=== PATIENT | female | born 2000 | race Hispanic/Latino ===

== ENCOUNTER 2022-12-15 05:38 | Emergency (ER) | payer OTHER, SELFPAY ==
[2022-12-15 05:41] VITALS: BP 124/71; PULSE 103; RESP 20; TEMP 37.3; O2SAT 100
[2022-12-15 06:00] LABS: Basophils Percent Auto 0.2 % (0.2-1.2); Eosinophils Percent Auto 0.2 % (0-4.4); Hematocrit 43.8 % (37.0-47.0); Hemoglobin 14.9 g/dL (12.0-15.0); Immature Granulocyte Absolute 0.09 K/mm3 (0.00-0.031); Immature Granulocyte Percent A 0.5 % (0-0.5); Lymphocytes Absolute Auto 0.28 K/mm3 (0.9-3.2); Lymphocytes Percent Auto 1.5 % (18.3-44.2); Mean Corpuscular Volume 88.1 fl (80-100); Mean Platelet Volume 9.7 fl (7.4-10.4); Monocytes Absolute Auto 0.8 K/mm3 (0.1-0.6); Neutrophils Absolute Auto 17.7 K/mm3 (1.3-6.7); Neutrophils Percent Auto 93.6 % (45.5-73.1); Platelet Count Result 232 k/mm3 (150-375); Red Blood Count 4.97 M/mm3 (4.2-5.4); Red Cell Distribution Width 13.4 % (11.5-14.5); White Blood Count 18.9 K/mm3 (4.5-10.0)
[2022-12-15 06:11] LABS: Alanine Aminotransferase 25 U/L (6-35); Albumin Level 5.1 g/dL (3.5-5.1); Alkaline Phosphatase 63 U/L (38-126); Anion Gap 8 mmol/L (8-16); Aspartate Amino Transferase 24 U/L (14-36); Bilirubin,Total 1.1 mg/dL (0.2-1.3); Blood Urea Nitrogen 10 mg/dL (7-17); Calcium 9.3 mg/dL (8.4-10.2); Carbon Dioxide 26 mmol/L (22-30); Chloride 102 mmol/L (98-107); Estimated CRCL calculation 102 ml/min; Estimated Glomerular Filt Rate > 60; Glucose 119 mg/dL (65-110); Lipase 46 U/L (23-300); Potassium 3.7 mmol/L (3.4-5.0); Sodium 136 mmol/L (137-145)
[2022-12-15] MEDS: SODIUM CHLORIDE 0.9% IV 2,000 ML 999 ML IV CONT (06:26)
[2022-12-15] MEDS: FAMOTIDINE 20 MG/2 ML VIAL IV PUSH (06:27)
[2022-12-15] MEDS: ONDANSETRON INJ 4 MG/2 ML VIAL IV PUSH (06:27)
--- NOTE | 2022-12-15 06:43 | ED.GENADULT ---
HPI - General Adult General Chief complaint: Nausea/Vomiting/Diarrhea <Tyson Mack MD - Last Filed: 12/18/22 08:26> Stated complaint: vomiting <Tyson Mack MD - Last Filed: 12/18/22 08:26> History of Present Illness HPI narrative: This is a 22-year-old female presenting ED with a chief complaint of nausea vomiting diarrhea x8 hours. At midnight patient again have multiple episodes of nonbloody nonbilious nausea and vomiting. Associated with nonbloody diarrhea. She also has diffuse generalized cramping pain in her belly that is 6 out 10 intensity and comes and goes. She says she has had this before when she has had GI upset. There are no exacerbating or alleviating symptoms. She denies fever, chills, URI symptoms, chest pain difficulty breathing urinary symptoms. She is not sexually active and has no concerns for STDs. <yTson Mack MD - Last Filed: 12/18/22 08:26> Related Data Allergies/adverse reactions: Allergies Allergy/AdvReac Type Severity Reaction Status Date / Time No Known Allergies Allergy Unverified 12/15/22 05:51 <Tyson Mack MD - Last Filed: 12/18/22 08:26> [facility] Past Medical History Medical History: Medical History (Updated 12/16/22 @ 00:00 by Mahad Malin) Mononucleosis <Tyson Mack MD - Last Filed: 12/18/22 08:26> Family History Family History: Family History Mother Family history of thyroid disease Grandparent Diabetes mellitus <Tyson Mack MD - Last Filed: 12/18/22 08:26> Social History Social History: Social History (Updated 11/18/21 @ 16:06 by Dorothy Escobedo) Social History: Student-Single Smoking status: Never smoker Second hand tobacco smoke exposure: No Alcohol intake: never Substance use: never Substance use type: does not use Living arrangements: with family Occupation/Education: student Additional occupation/education comments: Pt also works parts technician. Gender identity (if verbalized by the patient): Female Sexual Orientation (if Verbalized by the Patient): Straight or Heterosexual <Tyson Mack MD - Last Filed: 12/18/22 08:26> Exam Narrative: APPEARANCE: No apparent distress. patient is well-appearing Head: atraumatic. EYES: EOMI, NOSE: Atraumatic NECK: Trachea midline RESPIRATORY: No increased rate of breathing , CTAB CARDIOVASCULAR: RRR, ABDOMINAL: Abdomen is soft, nontender with no guarding or rebound. Bowel sounds are hyperactive. No CVA tenderness. MUSCULOSKELETAl: No obvious deformities NEURO: Alert. Moving 4/4 extremities SKIN:: Warm, dry. Normal color PSYCHIATRIC: Normal affect <Tyson Mack MD - Last Filed: 12/18/22 08:26> Course Course Emergency Course: 0700: Signed out to Dr. Barrera pending rehydration and reevaluation. <Tyson Mack MD - Last Filed: 12/18/22 08:26> CHECK CLERK/PA Physician Supervision I did reevaluate the patient, she is feeling much better, agreeable to going home and follow-up. Repeat abdominal exam does not reveal any tenderness, she was able to tolerate p.o., I have given her strict return precautions including if her symptoms persist for another day, or if it worsens or if she develops fevers or the pain localizes to her right lower quadrant or upper quadrant, or if she starts to vomitg again and cannot stop, she is to return immediately to the ER. Patient agreeable with this. <Anuja Barrera MD - Last Filed: 12/15/22 08:50> Vital Signs Vital signs: Vital Signs Temperature 99.2 F 12/15/22 05:41 Pulse Rate 103 H 12/15/22 05:41 Respiratory Rate 20 12/15/22 05:41 Blood Pressure 124/71 12/15/22 05:41 Pulse Oximetry 100 12/15/22 05:41 Oxygen Delivery Room Air 12/15/22 05:41 Temperature 99.2 F 12/15/22 05:41 Pulse Rate 100 12/15/22 09:10 Respiratory Rate 16 12/15/22 09:10 Blood Pressure 123/68 12/15/22 09:10 Pulse Oximetr
[2022-12-15 06:44] LABS: Appearance Urine Clear (Clear); Bacteria Urine Rare /hpf; Bilirubin Urine Negative (Negative); Blood Urine 1+ (Negative); Color Urine Yellow (Yellow); Glucose Urine UA Negative (Negative); Ketones Urine Trace mg/dL (Negative); Leukocyte Esterase Ur Trace LEU/UL (Negative); Nitrate Urine Negative (Negative); Non Pathogenic Casts 0-2; Protein Urine Negative (Negative); Specific Grav Ur 1.022 (1.001-1.035); Squamous Epithelial Cell Urine Moderate /hpf (Few); WBC Urine 0-5 /hpf
[2022-12-15 06:47] LABS: Add Urine Microscopic? YES
[2022-12-15] MEDS: ONDANSETRON HCL ODT 4 MG TABLET PO (08:38)
[2022-12-15] MEDS: MAG HYDROX/AL HYDROX/SIMETH 30 ML UDC PO (08:38)
[2022-12-15 09:10] VITALS: BP 123/68; PULSE 100; RESP 16; O2SAT 98
== END 2022-12-15 09:10 | disposition home or self-care (01) ==
PROVIDERS: Emergency Provider Emergency Medicine; PCP Family Medicine
DX: R11.2 Nausea with vomiting, unspecified (principal); R19.7 Diarrhea, unspecified
CPT/HCPCS: 36415; 80053; 81001; 81025; 83690; 85025; 96361; 96374; 96375; 99284; A9270; J2405; J7030

== ENCOUNTER 2022-12-19 14:48 | Emergency (ER) | payer OTHER, SELFPAY ==
[2022-12-19 14:59] VITALS: BP 124/76; PULSE 84; RESP 16; TEMP 37.3; O2SAT 100
--- NOTE | 2022-12-19 15:21 | ED.GENADULT ---
HPI - General Adult General Chief complaint: Unspecified Stated complaint: constipated, nausea Time Seen by Provider: 12/19/22 15:38 Source: patient and RN notes reviewed Mode of arrival: ambulatory Limitations: no limitations History of Present Illness HPI narrative: 22-year-old female presents with concern for constipation. She reports she was treated in the emergency room for nausea, vomiting, diarrhea 4 days ago. Reports her last bowel movement was on Tuesday and it was diarrhea. Reports she tried using fiber but has just been bloated and gassy. She reports normally she has a bowel movement every day or every other day, but she has had does tend to be constipated. Reports she has hemorrhoids from past constipation. She denies abdominal pain MD complaint: Constipation Related Data Allergies Allergy/AdvReac Type Severity Reaction Status Date / Time Penicillins Allergy Severe Swelling Verified 12/19/22 15:36 of Lip/Tongue/Throat Review of Systems Review of Systems: CONSTITUTIONAL: Denies malaise, chills, sweats, or fever. ENT: Denies rhinorrhea, congestion, sinus pain, otalgia or sore throat. CARDIOVASCULAR: Denies chest pain, palpitations, or edema. RESPIRATORY: Denies cough or dyspnea. GASTROINTESTINAL: Denies abdominal pain, vomiting, diarrhea, bloody, or mucous stools. Reports nausea, constipation, bloating, gas GENITOURINARY: Denies dysuria or hematuria. MUSCULOSKELETAL: Denies myalgia. NEUROLOGIC: Denies headache. All systems reviewed & are unremarkable except as noted in HPI and below PMFSH Past Medical History Medical History (Updated 12/19/22 @ 15:58 by Yaritza Scruggs NP) Mononucleosis Family History Family History Mother Family history of thyroid disease Grandparent Diabetes mellitus Social History Social History (Updated 11/18/21 @ 16:06 by Dorothy Escobedo) Social History: Student-Single Smoking status: Never smoker Second hand tobacco smoke exposure: No Alcohol intake: never Substance use: never Substance use type: does not use Living arrangements: with family Occupation/Education: student Additional occupation/education comments: Pt also works parts administrator. Gender identity (if verbalized by the patient): Female Sexual Orientation (if Verbalized by the Patient): Straight or Heterosexual Comments At time of signature, agree with nursing past medical, surgical, social and family history. There is no relevant family history pertinent to the presenting complaint Exam Narrative: GENERAL: Well-appearing, well-nourished, and in no acute distress. HEAD: Normocephalic, atraumatic. EYES: PERRLA, conjunctivae clear, and EOMI. ENT: Nares clear, turbinates pink, no rhinorrhea or epistaxis. Mucous membranes moist. Oropharynx without edema, erythema, or lesions. Tonsils not enlarged and without exudate. NECK: Supple. No lymphadenopathy CHEST: Speaks in full sentences. No respiratory distress. HEART: Regular rate and rhythm. ABDOMEN: Soft, flat, nondistended, nontender. No guarding, rebound tenderness, or rigidity. No pulsatile masses. Bowel sounds present in all four quadrants. No organomegaly. Negative Vela?s sign. No periumbilical tenderness. No Supra public tenderness or distension. No scars or surface trauma. SKIN: Warm, dry, no rash. NEURO: Alert and oriented x3. PSYCH: Normal mood and affect Course Course Emergency Course: Patient is aware of diagnosis, understands and agrees to treatment plan. Anticipatory guidance given. Patient agrees to follow-up as directed and is aware of reasons to seek care at the emergency department. Portions of this record may have been created with voice recognition software Level of Care: Express Care Visit Vital Signs Vital signs: Vital Signs Temperature 99.2 F 12/19/22 14:59 Pulse Rate 84 12/19/22 14:59 Respiratory Rate 16 12/19/22 14:59 Blood Pr
== END 2022-12-19 16:08 | disposition home or self-care (01) ==
PROVIDERS: Emergency Provider Nurse Practitioner; PCP Family Medicine
DX: K59.00 Constipation, unspecified (principal)
CPT/HCPCS: 99211; G0463

== ENCOUNTER 2023-01-24 01:42 | Day surgery (SDC) | payer OTHER, SELFPAY ==
[2023-01-17 17:08] VITALS: BMI 18.1
--- NOTE | 2023-01-17 17:30 | PC.NURSE ---
Report to the Outpatient Waiting Room, entrance under the green pavilion located off [facility], at 1200 on 01-24-23. Planned Procedure Time: 1400. Time changes happen often and if your time is changed the preop area will call you the afternoon before. - You and your visitor will be asked to self-screen and do not enter if you have any COVID symptoms. - A mask is optional within the hospital at this time. Patients may have clear liquids (water, carbonated beverages, clear teas, apple juice) until 3 hours prior to surgery with a maximum of 20 ounces. 1100 - No food from midnight until time of surgery - Infants may have breast milk until 4 hours before surgery, formula 6 hours prior to surgery. - Children will be allowed to drink immediately following surgery. If applicable, please bring a bottle or sippy cup to assist with drinking. Juice, water, soda, and popsicles are readily available. For infants on formula, please bring formula the day of surgery. Pacifiers are allowed. Take the following medications with a SIP of water the morning of surgery: None DO NOT STOP ANY OF YOUR OTHER PRESCRIPTION MEDICATIONS PRIOR TO SURGERY ?EXCEPT THE FOLLOWING Medications to discontinue per physician: N/A Please no make-up, nail sinhala, hairspray, perfume, deodorant, or body powder the day of surgery. No jewelry (including any body piercings) or valuables the day of surgery, leave them at home. Please take a shower or bath the night before, or the morning of, surgery with an antibacterial soap. Wear comfortable, loose fitting clothing. Children are encouraged to wear pajamas. - Jewelry must be removed prior to entering the operating room. Rings and piercings that are not removed may be cut off. - The hospital will not accept responsibility for valuables. - Please leave all valuables, including medications, at home the day of surgery. If you are going home after surgery, a licensed pile driver operator helper must drive you home. - NO public transportation without another adult if you receive anesthesia. - We recommend that an adult stay with you for 24 hours following discharge. - We also recommend that you do not drive, make important decision, drink alcoholic beverages, or take any drugs that were not prescribed by your health care provider for at least 24 hours after your discharge time. For Pediatric surgeries, we recommend two adults accompany the child home. Follow any additional instructions given to you from your surgeon. If you or anyone in your household have experienced Covid symptoms in the past week, please notify your surgeon or the nurse liaison at the phone number below for possible testing. Telephone instructions given to Brittney Stallworth and asked if any additional questions and then verbalized understanding. Patient advised to call surgeon office or pre surgery nurse liaison [phone] if any additional questions.
--- NOTE | 2023-01-24 09:43 | WPDHPUPDATE1 ---
History and Physical Update Update Date/Time: 01/24/23 09:43 History and Physical has been reviewed, including an updated exam of the patient. There are NO changes in the patient's condition. Risks, benefits, and alternatives have been discussed and questions answered. Patient agrees to proceed with procedure.
--- NOTE | 2023-01-24 09:43 | PM.HPGS ---
History of Present Illness History of Present Illness Consent: Risks, benefits, and alternatives have been discussed and questions answered. Patient agrees to proceed with procedure. Chief complaint: microperforate hymen Narrative: Brittney Stallworth is a 22 year old female with monthly menses. 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 The hymenal ring is hypertrophic. Patient wishes to proceed with examination under anesthesia, surgical dilation of the vagina, and possible excision hymenal tissue. [facility] Past Medical History Medical History (Updated 01/24/23 @ 09:47 by Maria Ines Woods MD) Anxiety Scoliosis Family History Family History Mother Family history of thyroid disease Grandparent Diabetes mellitus Social History Social History (Updated 12/23/22 @ 15:38 by Dorothy Escobedo) Social History: Student-Single Smoking status: Never smoker Second hand tobacco smoke exposure: No Alcohol intake: never Substance use: never Substance use type: does not use Lack of Transportation: No Lack of Food: Never True Current Housing: I Have Housing Concerned About Future Housing: No Difficulty Paying Gas/Electric Bills: No Difficulty Paying for Meds: No Currently Unemployed: No Education: Decline to Answer Difficulty w/ Childcare or Family Care: No Living arrangements: with family Occupation/Education: occupation Gender identity (if verbalized by the patient): Female Sexual Orientation (if Verbalized by the Patient): Straight or Heterosexual Spiritual care concerns: No Meds Home Medications and Allergies Home Medications Medication Instructions Recorded Confirmed Type lidocaine 3 %-hydrocortisone 0.5 % 1 applic topical BID #28.3 grams 12/24/22 01/17/23 Rx topical cream Allergies Allergy/AdvReac Type Severity Reaction Status Date / Time Penicillins Allergy Severe Swelling Verified 01/17/23 17:04 of Lip/Tongue/Throat Exam Const: General: healthy appearing and alert Orientation/consciousness: patient oriented x3 Resp: Effort & Inspection: normal respiratory effort GI: GI Palp: Yes Soft to palpation, No Tenderness to palpation present (GI) and No Palpable mass present : External Female Exam: normal external appearance and other ( hymenal ring appears hypertrophic) Speculum Exam - Vagina: other ( inability to enter the vaginal cavity even with a Q-tip) Neuro: General: patient oriented x3 Assessment and Plan Assessment and plan (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
--- NOTE | 2023-01-24 12:43 | WPDANESEPPF ---
Anes - Initial Pre Proc Eval Procedure: Operation Date: 01/24/23 14:00 Proposed Procedures p Hymenectomy - Maria Ines Woods MD Date/Time: 01/24/23 12:43 Surgeon: Maria Ines Woods MD Pre Op Diagnosis: microperforate hymen Patient Data Age: 22 Gender: F Height: 1.57 m Weight: 44.91 kg Allergies Allergy/AdvReac Type Severity Reaction Status Date / Time Penicillins Allergy Severe Swelling Verified 01/17/23 17:04 of Lip/Tongue/Throat Home Medications Medication Instructions Recorded Confirmed Type lidocaine 3 %-hydrocortisone 0.5 % 1 applic topical BID #28.3 grams 12/24/22 01/17/23 Rx topical cream Patient hx anesthesia problems: none Family hx anesthesia problems: none Results Review: All pre-operative results and documents have been reviewed as part of the pre-operative evaluation. [facility] Past Medical History Medical History Anxiety Scoliosis Family History Family History Mother Family history of thyroid disease Grandparent Diabetes mellitus Social History Social History Social History: Student-Single Smoking status: Never smoker Second hand tobacco smoke exposure: No Alcohol intake: never Substance use: never Substance use type: does not use Lack of Transportation: No Lack of Food: Never True Current Housing: I Have Housing Concerned About Future Housing: No Difficulty Paying Gas/Electric Bills: No Difficulty Paying for Meds: No Currently Unemployed: No Education: Decline to Answer Difficulty w/ Childcare or Family Care: No Living arrangements: with family Occupation/Education: occupation Gender identity (if verbalized by the patient): Female Sexual Orientation (if Verbalized by the Patient): Straight or Heterosexual Spiritual care concerns: No Anes - Eval Final PreProcedure Day of Procedure 01/24/23 12:43 Patient weight: normal Heart: regular rate and rhythm Lungs: clear to auscultation Airway: Mallampati scale class II Neurological: alert and oriented Last oral intake: >/= 8 hours ASA classification: II Emergent: no Anesthetic plan: proceed Anesthesia type and monitoring: general GIVS and standard monitoring Results Review: All pre-operative results and documents have been reviewed as part of the pre-operative evaluation. Informed Consent: The patient's anesthetic plan and its attendant risks and benefits were discussed with the patient/family/POA. Questions were solicited and answers provided to the satisfaction of the patient/family/POA.
[2023-01-24] MEDS: LACTATED RINGERS 1,000 ML 30 ML IV CONT (13:00)
[2023-01-24 13:05] VITALS: BP 113/82; PULSE 60; RESP 16; TEMP 36.4; O2SAT 100
--- NOTE | 2023-01-24 13:20 | W.PM.PROC2 ---
Procedure Note - Detailed Date of Procedure 01/24/23 Pre-op Diagnosis microperforate hymen Post-op Diagnosis Same Procedure Performed examination under anesthesia vaginal dilation Surgeon Maria Ines Woods MD Anesthesia MAC Findings Micro perforate hymen Description of Procedure The patient is taken to the operating room and placed under anesthesia in the dorsal lithotomy position. She is prepped and draped externally. Examination under anesthesia reveals no obvious opening to the vaginal canal. The 4 mm Hegar dilator is used and a small membranous portion of hymen is perforated. Watery white discharge was released. The vagina is then serially dilated to a 10 mm Hegar. The vagina is normal length. The cervix palpates as normal. The patient was then awakened from anesthesia and taken to recovery in stable condition. Estimated Blood Loss 5 Drains No Packing No Pathology None sent Complications No immediate complications Condition Stable Disposition PACU
[2023-01-24 13:24] VITALS: BP 93/49; PULSE 63; RESP 10; O2SAT 100
[2023-01-24 13:50] VITALS: BP 106/67; PULSE 68; RESP 12; O2SAT 100
[2023-01-24 14:15] VITALS: BP 104/71; PULSE 74; RESP 14
== END 2023-01-24 14:22 | disposition home or self-care (01) ==
PROVIDERS: PCP Family Medicine; Visit Provider Obstetrics & Gynecology Gynecology
PROC: (CPT 57400; principal; 2023-01-24 14:00)
DX: Q52.4 Other congenital malformations of vagina (principal)
CPT/HCPCS: 57400; A9270; J2250; J2405; J2704; J3010; J7120

== ENCOUNTER 2024-11-17 16:58 | Emergency (ER) | payer OTHER, SELFPAY ==
--- NOTE | 2024-11-17 17:43 | ED_ITS ---
HPI - Female Genitourinary General Chief complaint: Urogenital-Female Stated complaint: UTI SYMPTOMS Time Seen by Provider: 11/17/24 17:40 Source: patient, RN notes reviewed and old records reviewed Mode of arrival: ambulatory Limitations: no limitations History of Present Illness HPI Narrative: 24 year old female who presents to express care with complaints of feeling urgency to void since Tuesday with burning and feels like she is not emptying her bladder completely. Patient reports that she has not had any fevers chills or sweats, denies any nausea or vomiting. Patient reports mild suprapubic tenderness and some lower back pain. Patient has been taking AZO for her symptoms. Urine is orange in color. MD elicited complaint: dysuria Onset (ago): day(s) (3-4 days) Severity: moderate Vaginal discharge: none Vaginal bleeding: none Urinary symptoms: Dysuria, Urgency and Difficulty Urinating (feels like bladder is not emptying completely) Treatment prior to arrival: OTC urinary analgesics (AZO) Related Data Allergies Allergy/AdvReac Type Severity Reaction Status Date / Time Penicillins Allergy Severe Swelling Verified 11/17/24 17:10 of Lip/Tongue/Throat Review of Systems Review of Systems: CONSTITUTIONAL: Denies fever, chills, or sweats. CARDIOVASCULAR: Denies chest pain, palpitations, or edema. RESPIRATORY: Denies cough or dyspnea. GASTROINTESTINAL: mild suprapubic abdominal pain,no nausea, vomiting, or diarrhea. GENITOURINARY: Reports dysuria, frequency, urgency. Denies flank pain or hematuria. SKIN: Denies rash or itching. MUSCULOSKELETAL: Denies acute back pain or myalgia. Denies CVA tenderness NEUROLOGIC: Denies headache All systems reviewed & are unremarkable except as noted in HPI and below PMFSH Past Medical History Medical History Anxiety Scoliosis Family History Family History Mother Family history of thyroid disease Grandparent Diabetes mellitus Social History Social History Social History: Student-Single Smoking status: Never smoker Second hand tobacco smoke exposure: No Alcohol intake: never Substance use: never Substance use type: does not use Lack of Transportation: No Lack of Food: Never True Current Housing: I Have Housing Concerned About Future Housing: No Difficulty Paying Gas/Electric Bills: No Difficulty Paying for Meds: No Currently Unemployed: No Education: Decline to Answer Difficulty w/ Childcare or Family Care: No Living arrangements: with family Occupation/Education: occupation Gender identity (if verbalized by the patient): Female Sexual Orientation (if Verbalized by the Patient): Straight or Heterosexual Spiritual care concerns: No Comments At time of signature, agree with nursing past medical, surgical, social and family history. There is no relevant family history pertinent to the presenting complaint Exam Narrative: GENERAL: Well-appearing, well-nourished, and in no acute distress. HEAD: Normocephalic, atraumatic. NECK: Supple.no lymphadenopathy CHEST: Clear to auscultation. No respiratory distress. SAO2 99% on room air HEART: Regular rate and rhythm. No murmur heard. Normal peripheral pulses. ABDOMEN: Soft, tender over suprapubic area , no McBurney point tenderness, nondistended, normal active bowel sounds. No CVA tenderness, burning and urgency and feel like bladder not emptying. EXTREMITIES: Normal range of motion. No edema. SKIN: Warm, dry, no rash. NEURO: No focal deficits. Alert and oriented x3. Course Course Emergency Course: Patient is aware of diagnosis, understands and agrees to treatment plan.? Anticipatory guidance given.? Patient agrees to follow-up as directed and is aware of reasons to seek care at the emergency department. Portions of this record may have been created with voice recognition software Level of Care: Express Care Visit Vital Signs Vital signs: Vital Signs Temperature 37.1 C 11/17/24 18:00 Pulse Rate 78 11/17/24 18:00 Respiratory Rate 16 11/17/24 18:00 Blood Pressure 121/81 11/17/24 18:00 Pulse Oximetry 99 11/17/24 18:00 Temperature 37.1 C 11/17/24 18:00 Pulse Rate 78 11/17/24 18:00 Respiratory Rate 16 11/17/24 18:00 Blood Pressure 121/81 11/17/24 18:00 Pulse Oximetry 99 11/17/24 18:00 MDM - Female Genitourinary MDM Narrative Medical decision making narrative: Exam findings and UA show no acute concerns or changes; patient is non-toxic appearing and is in no distress.? Patient is appropriate for outpatient treatment and follow-up. Differential Diagnosis Differential diagnosis: Likely urinary tract infection, cystitis and other (dysuria) Medical Records Attestation: I reviewed the patient's medical records. Lab Data Attestation: I reviewed the patient's lab results. Lab results narrative: Patient has taken AZO urine orange from AZO culture sent no urine dip done Critical Care Time Critical Care Time Critical Care Time: No Discharge Plan Discharge Clinical Impression: Urinary tract infection Qualifiers: Urinary tract infection type: site unspecified Hematuria presence: without hematuria Qualified Code(s): N39.0 - Urinary tract infection, site not specified Patient Disposition: Home, Self-Care Condition: Stable Instructions: Antibiotic Form, Urinary Tract Infection in Women (DC) Additional Instructions: Increase fluids especially cranberry juice and water Avoid caffeine and carbonated beverages Antibiotic as directed Tylenol/ibuprofen for pain or fever Follow-up with her primary care provider if further problems or concerns Recheck if you have fever over 101, nausea and vomiting. we will notify you if we need to change the antibiotic usually takes 2 days to get urine cultures back from lab If your symptoms persist, change or worsen significantly before you can contact your personal physician then please, without delay, go to the emergency de partment for further evaluation. Follow-up with PCP in 7-10 days or sooner if needed Patient Language: Ug[place]an Prescriptions: New nitrofurantoin monohyd/m-cryst [Macrobid] 100 mg capsule 100 mg PO Q12H 7 Days Qty: 14 0RF Rx Instructions: must administer with a meal/food Follow-up/Referrals: PHYSICIAN,FAST FOOD CASHIER [Primary Care Provider] - Time of Disposition: 18:00 Quality Ronn Coma Scale Eyes: Open Verbal: Oriented and Alert Motor: Follows Commands Ronn Coma Total Score: 15
[2024-11-17 18:00] VITALS: BP 121/81; PULSE 78; RESP 16; TEMP 37.1; O2SAT 99
== END 2024-11-17 18:15 | disposition home or self-care (01) ==
PROVIDERS: Emergency Provider Registered Nurse
DX: N39.0 Urinary tract infection, site not specified (principal); M41.9 Scoliosis, unspecified
CPT/HCPCS: 87086; 87186; 99213; G0463

== ENCOUNTER 2025-04-30 12:13 | Emergency (ER) | payer OTHER, SELFPAY ==
[2025-04-30 12:24] VITALS: BP 100/74; PULSE 69; RESP 16; TEMP 36.6; O2SAT 100
--- NOTE | 2025-04-30 13:01 | ED_ITS ---
HPI - Eye Problem General Chief complaint: Eye Problems Stated complaint: Eye Irritation Time Seen by Provider: 04/30/25 12:20 Source: patient and RN notes reviewed Mode of arrival: ambulatory Limitations: no limitations History of Present Illness HPI Narrative: 24-year-old female presents [facility] complaining of right eye redness and drainage for 1 week. She reports that her right eye was having persistent drainage over the last week however today she developed redness and burning sensation in her right eye. Patient denies any vision changes, severe headaches, nausea vomiting, upper respiratory symptoms, fevers, body aches, chills, or any other symptoms. Patient has a history of LASIK eye surgery to her right eye but not recent. Related Data Allergies Allergy/AdvReac Type Severity Reaction Status Date / Time Penicillins Allergy Severe Swelling Verified 11/17/24 17:10 of Lip/Tongue/Throat Review of Systems Review of Systems: CONSTITUTIONAL: Denies fever, chills, or sweats. EYES: Denies visual changes. Positive for redness and discharge. ENT: Denies rhinorrhea, congestion, sore throat, or otalgia. CARDIOVASCULAR: Denies chest pain, palpitations, or edema. RESPIRATORY: Denies cough or dyspnea. GASTROINTESTINAL: Denies abdominal pain, nausea, vomiting, or diarrhea. GENITOURINARY: Denies dysuria or hematuria. SKIN: Denies rash or itching. MUSCULOSKELETAL: Denies back pain, joint pain, or myalgia. NEUROLOGIC: Denies headache, numbness, or weakness. PSYCHIATRIC: Denies anxiety or depression. All other systems reviewed are negative, except as documented in HPI. [facility] Past Medical History Medical History Scoliosis Anxiety Family History Family History Mother Family history of thyroid disease Grandparent Diabetes mellitus Social History Social History Social History: Student-Single Smoking status: Never smoker Second hand tobacco smoke exposure: No Alcohol intake: never Substance use: never Substance use type: does not use Lack of Transportation: No Lack of Food: Never True Current Housing: I Have Housing Concerned About Future Housing: No Difficulty Paying Gas/Electric Bills: No Difficulty Paying for Meds: No Currently Unemployed: No Education: Decline to Answer Difficulty w/ Childcare or Family Care: No Living arrangements: with family Occupation/Education: occupation Gender identity (if verbalized by the patient): Female Sexual Orientation (if Verbalized by the Patient): Straight or Heterosexual Spiritual care concerns: No Comments At the time of my signature, I reviewed and agree with the nursing past medical, surgical, social, and family history. There is no relevant family history pertinent to the patient complaint. Exam Narrative: GENERAL: This is a well-nourished, well-developed adult, in no apparent di stress. They are non ill-appearing, nontoxic appearing. HEAD: normocephalic, atraumatic. EYES: Sclera clear/white. Left Conjunctiva normal. Right conjunctiva injected. Watery discharge present. Vision is grossly intact. Extraocular movements intact. Pupils PERRLA EARS: External ears normal, auditory canals clear and without drainage, TMs normal without perforation. Hearing grossly intact. NOSE: External nose normal with no obvious nasal discharge, nasal turbinates without redness, no rhinorrhea. THROAT: Mucous membranes moist, posterior pharynx clear, without erythema or swelling. Uvula midline. NECK: Neck supple, non-tender without lymphadenopathy, masses or thyromegaly. CARDIOVASCULAR: Regular rate and rhythm without murmurs, gallops, or rubs. RESPIRATORY: Clear to auscultation. Breath sounds equal bilaterally. No wheezes, rales, or rhonchi. SKIN: warm, Dry, intact with no suspicious lesions or rash, good texture and turgor. NEURO: awake, alert, and oriented to person, place and time. There were no obvious focal neurologic abnormalities. EXTREMITIES: No joint tenderness, effusion, or edema noted. BACK: Nontender without deformity. No CVA tenderness. Course Course Emergency Course: Portions of this record may have been created with voice recognition software Level of Care: Express Care Visit Vital Signs Vital signs: Vital Signs Temperature 97.8 F 04/30/25 12:24 Pulse Rate 69 04/30/25 12:24 Respiratory Rate 04/30/25 12:24 Blood Pressure 100/74 04/30/25 12:24 Pulse Oximetry 100 04/30/25 12:24 Temperature 97.8 F 04/30/25 12:24 Pulse Rate 69 09/16/25 12:24 Respiratory Rate 16 04/30/25 12:24 Blood Pressure 100/74 04/30/25 12:24 Pulse Oximetry 100 04/30/25 12:24 Reviewed MDM - Eye Problem MDM Narrative Medical decision making narrative: Patient likely has bacterial conjunctivitis. Will treat her with polymyxin eye drops. Discussed physical exam findings. Advised supportive measures and signs/symptoms to go to the ER. Pt is appropriate for outpt treatment and f/u. Differential Diagnosis Differential diagnosis: Likely corneal abrasion, conjunctivitis and acute iritis Critical Care Time Critical Care Time Critical Care Time: No Discharge Plan Discharge Clinical Impression: Bacterial conjunctivitis Patient Disposition: Home Condition: Stable Instructions: Antibiotic Form, Conjunctivitis (ED) Additional Instructions: Your exam today shows Conjunctivitis, You have been given a prescription for eye drops. Use the eye drops as instructed. If you are not better in two (2) days, you need to follow up with an binder fixer. Do not rub the eye or put anything else in the eye, this can cause abrasions (scratches) on the eye or lead to vision loss. Also it is important not to touch the tube or tip of drops to the eye, as this can cause further infection. Wash your hands very well before instilling the medication. Handwashing can help prevent the spread of disease. Follow up with PCP in 3-5 days Return to ER if he develops severe eye pain, vision changes, severe headaches, nausea, vomiting, or any serious concerns. Contact [facility] if you need an Senior Chemical Engineer [] Patient Language: Slovak Prescriptions: New polymyxin B sulf-trimethoprim 10,000 unit- 1 mg/mL drops 1 drp RIGHT EYE Q3H 7 Days Qty: 10 0RF Rx Instructions: while awake; do not exceed 6 doses in 24 hours No Action nitrofurantoin monohyd/m-cryst [Macrobid] 100 mg capsule 100 mg PO Q12H 7 Days Qty: 14 0RF Rx Instructions: must administer with a meal/food Follow-up/Referrals: PHYSICIAN,SUPPORT GROUP MANAGER [Primary Care Provider, Internal Medicine] Stand Alone Forms: Work/School Release IP Time of Disposition: 12:38
== END 2025-04-30 12:41 | disposition home or self-care (01) ==
DX: H10.9 Unspecified conjunctivitis (principal)
CPT/HCPCS: 99213; G0463

== ENCOUNTER 2025-05-11 19:05 | Emergency (ER) | payer OTHER, SELFPAY ==
--- NOTE | 2025-05-11 19:08 | ED.EYEPROB ---
HPI - Eye Problem General Chief complaint: Eye Problems Stated complaint: Eye Problems Patient presents to the [facility] right eye itching, irritation, bubbling with yellow color in the white part of the eye and drainage from the right eye that began earlier today. Patient noted that she was evaluated here earlier this month and was diagnosed with an infection and placed on antibiotic eyedrops in the right eye. Noted that symptoms were slightly different than what they are today. Patient reports using the eyedrops and symptoms did improve but not completely. Patient was evaluated at eye doctor told this was likely related to allergies and recommended her to use Pataday eyedrops which she has been using. Patient does report she did come in contact with a cat and unsure if it is the cat and then she rubbed her eye. Denies vision changes, headache, dizziness, or cold symptoms. Related Data Allergies Allergy/AdvReac Type Severity Reaction Status Date / Time Penicillins Allergy Severe Swelling Verified 05/11/25 19:07 of Lip/Tongue/Throat Review of Systems Constitutional: Constitutional: Reports as per HPI, Denies chills, Denies fatigue, Denies fever(s) and Denies weakness Eyes: Eyes: Reports as per HPI, Denies change in vision and Denies photophobia Comments: Right eye irritation, redness, bubbling and yellow to white part of eye ENT: Reports system reviewed and no additional complaints, except as documented Cardiovascular: Cardiovascular: Reports no additional cardiovascular complaints Respiratory: Respiratory: Reports no additional respiratory complaints Gastrointestinal: Gastrointestinal: Reports no additional gastrointestinal complaints Genitourinary: Genitourinary: Reports no additional female genitourinary complaints Musculoskeletal: Musculoskeletal: Reports no additional musculoskeletal complaints Integumentary/Breasts: Skin/Breast: Reports system reviewed and no additional complaints, except as docu Neurologic: Reports as per HPI, Denies vertigo, Denies dizziness and Denies headache(s) Psychiatric: Psychiatric: Reports no additional psychiatric complaints Endocrine: Endocrine: Reports no additional endocrine complaints Hematologic/Lymphatic: Hematologic/Lymphatic: Reports no additional hematologic/lymphatic complaints Allergic/Immunologic: Allergic/Immunologic: Reports as per HPI Comments: seasonal allergies PMFSH Past Medical History Medical History Scoliosis Anxiety Family History Family History Mother Family history of thyroid disease Grandparent Diabetes mellitus Social History Social History Social History: Student-Single Smoking status: Never smoker Second hand tobacco smoke exposure: No Alcohol intake: never Substance use: never Substance use type: does not use Lack of Transportation: No Lack of Food: Never True Current Housing: I Have Housing Concerned About Future Housing: No Difficulty Paying Gas/Electric Bills: No Difficulty Paying for Meds: No Currently Unemployed: No Education: Decline to Answer Difficulty w/ Childcare or Family Care: No Living arrangements: with family Occupation/Education: occupation Gender identity (if verbalized by the patient): Female Sexual Orientation (if Verbalized by the Patient): Straight or Heterosexual Spiritual care concerns: No Exam Const: General: healthy appearing and no acute distress Nutritional Appearance: well nourished Orientation/consciousness: patient oriented x3 Limitations: no limitations HENMT: Head: normal to inspection Ears: external ears normal Face/Nose/Sinus: Normal external nose present Face and sinus: normal facial exam Eyes: Conjunctivae: conjunctival abnormality (mild injection, chemosis at 7 o'clock, yellow exudate ) right Pupils: Equal, round and reactive pupils present EOM: EOMs intact bilaterally Direct Ophthalmoscopy: no photophobia Neck: Neck: normal visual inspection and no lymphadenopathy Resp: Effort & Inspection: normal respiratory effort Auscultation: clear to auscultation bilaterally Cardio: Rate: regular rate Rhythm: regular rhythm Skin: General skin exam: normal color Rashes: no rashes Wounds: no wounds Neuro: General: patient oriented x3 Cranial nerves: Yes Nystagmus not present Speech: normal speech Gait exam (Neuro): Normal gait present Psych: Mental Status: mental status grossly normal Affect: normal affect Attitude: cooperative Course Course Level of Care: Express Care Visit MDM - Eye Problem MDM Narrative Medical decision making narrative: The patient was evaluated by myself in the express care. History is obtained from patient who is an independent historian and physical exam was performed. Available medical records were reviewed at this time. Exam findings show no acute concerns or changes; patient is non-toxic appearing and is in no distress. Patient is appropriate for outpatient treatment and follow-up. I have evaluated and discussed social determinants of health with the patient that could potentially impact subsequent diagnosis and treatment plans. Differential diagnosis and treatment plan were discussed with the patient. Patient agrees with discussion and after shared medical decision making agrees with plan of care. All questions were answered to the patient's satisfaction. Differential Diagnosis Differential diagnosis: Likely conjunctivitis, acute iritis, hyphema, subconjunctival hemorrhage, glaucoma, corneal ulcer and ruptured globe Medical Records Attestation: I reviewed the patient's medical records. Discharge Plan Discharge Clinical Impression: Acute conjunctivitis of right eye Patient Disposition: Home Condition: Stable Instructions: Antibiotic Form, Conjunctivitis (ED) Additional Instructions: Your exam today shows Conjunctivitis, You have been given a prescription for eye drops. Use the eye drops as instructed. If you are not better in two (2) days, you need to follow up with an receiving associate store. Do not rub the eye or put anything else in the eye, this can cause abrasions (scratches) on the eye or lead to vision loss. Also it is important not to touch the tube or tip of drops to the eye, as this can cause further infection. Wash your hands very well before instilling the medication. Handwashing can help prevent the spread of disease. Follow up with PCP in 7-10 days Return to ER for problems Contact [facility] if you need an Supermarket Manager [] Patient Language: Slovenian Prescriptions: New tobramycin-dexamethasone 0.3-0.1 % drops,suspension 1 drp RIGHT EYE QID 7 Days Qty: 5 0RF No Action nitrofurantoin monohyd/m-cryst [Macrobid] 100 mg capsule 100 mg PO Q12H 7 Days Qty: 14 0RF Rx Instructions: must administer with a meal/food polymyxin B sulf-trimethoprim 10,000 unit- 1 mg/mL drops 1 drp RIGHT EYE Q3H 7 Days Qty: 10 0RF Rx Instructions: while awake; do not exceed 6 doses in 24 hours Follow-up/Referrals: PHYSICIAN,PHARMACEUTICAL PROCESS ENGINEER [Primary Care Provider, Internal Medicine] Time of Disposition: 19:19
[2025-05-11 19:10] VITALS: BP 104/64; PULSE 64; RESP 18; TEMP 37.2; O2SAT 99
== END 2025-05-11 19:22 | disposition home or self-care (01) ==
PROVIDERS: Emergency Provider Nurse Practitioner Family
DX: H10.31 Unspecified acute conjunctivitis, right eye (principal)
CPT/HCPCS: 99213; G0463